=== PATIENT | male | born 1960 | race Caucasian/White ===

== ENCOUNTER → 2020-07-08 12:44 | Outpatient (CLI) | payer OTHER, SELFPAY ==
--- NOTE | 2020-07-08 12:46 | DI.US.S_ITS ---
PROCEDURE: US ABDOMEN LIMITED INDICATIONS: LEFT SIDED ABDOMINAL PAIN - RULE OUT HERNIA TECHNIQUE: Real-time focused scanning was performed of the left inguinal region with and without Valsalva, with image documentation. COMPARISON: None. FINDINGS: No inguinal hernia. No mass or fluid collection. IMPRESSION: No evidence of left inguinal hernia. Dictated by: Constantino Nash M.D. on 07/08/2020 at 14:15 Approved by: Constantino Nash M.D. on 07/08/2020 at 14:17
== END ==
PROVIDERS: Referring Provider Physician Assistant; Visit Provider Physician Assistant
DX: R10.30 Lower abdominal pain, unspecified (principal)
CPT/HCPCS: 76705